=== PATIENT | male | born 1975 | race Caucasian/White ===

== ENCOUNTER 2018-03-17 10:59 | Emergency (ER) | payer SELFPAY ==
[2018-03-17] MEDS ORDERED: LORazepam 1 MG Tab ONE ×2 (11:00→17:38)
[2018-03-17] MEDS ORDERED: Ondansetron 4 MG Tab.DIS ONE (11:00)
[2018-03-17] MEDS ORDERED: MVI, Adult with Vitamin K 10 ML, Thiamine 100 MG, Folic Acid 1 MG, Magnesium Sulfate 3 ... IV SCH ×5 (11:45)
[2018-03-17] MEDS ORDERED: Sodium Chloride 0.9% 1,000 ML IV SCH ×2 (11:45→15:15)
[2018-03-17] MEDS ORDERED: Thiamine 200 MG/2 ML MDV ONE (11:53)
[2018-03-17] MEDS ORDERED: Magnesium Sulfate (4.06 MEQ/ML) 1 GM/2 ML SDV ONE (11:54)
[2018-03-17] MEDS ORDERED: MVI, Adult with Vitamin K 10 ML, Thiamine 100 MG, Folic Acid 1 MG, Magnesium Sulfate 3 ... IV ONE ×5 (12:18)
[2018-03-17] MEDS ORDERED: LORazepam 2 MG/ML SDV IVPUSH ONE (12:46)
[2018-03-17] MEDS ORDERED: LORazepam 2 MG/ML SDV ONE (13:04)
[2018-03-17] MEDS ORDERED: Sodium Chloride 0.9% 1,000 ML IV ONE (13:42)
[2018-03-17] MEDS ORDERED: Nicotine 21 MG/24 Hr Patch TRDERM ONE (15:05)
[2018-03-17] MEDS ORDERED: Nicotine 21 MG/24 Hr Patch ONE (15:07)
--- NOTE | 2018-03-17 21:57 | ER ---
DATE OF SERVICE: 03/17/2018 HISTORY OF PRESENT ILLNESS: A 42-year-old male who comes in with several family members. The patient is requesting help due to alcohol abuse. The patient tells me he has drank a lot of alcohol for many years. He does not drink every day, but he drinks a lot when he does decide to drink alcohol. In the last few days, he has been drinking a combination of beer and whiskey. The patient states that he knows he needs some help. He also tells me he has had some problems with depression in the past. He was on pills for this and it did seem to help, but he quit taking them quite a while ago now. The patient denies any recent falls or injuries. OBJECTIVE: GENERAL APPEARANCE: The patient is awake, he is slightly groggy in nature. He is quite talkative and uses a lot of profanity. VITAL SIGNS: Reviewed. Blood pressure 133/92, pulse is 131. He is afebrile. O2 sats are 99%, respirations 18. HEENT : Oral mucous membranes are moist. Posterior pharynx shows mild inflammation. Ears, TMs are normal. NECK: Supple. LUNGS: Clear. CARDIAC: Heart sounds distinct without murmurs. SKIN: Warm and dry. LAB AND X-RAY STUDIES: CBC shows an elevated white count of 18.5, neutrophils are also elevated. Comprehensive metabolic panel shows a potassium level of just slightly below normal at 3.4, glucose is 80. Liver panel shows an AST of 57. UA shows 40 ketones, moderate amount of occult blood, and greater than 300 proteinuria. Urine tox screen is negative. ETOH is 549. DIAGNOSIS: Alcohol intoxication with chronic history of the same/alcohol abuse. TREATMENT PLAN: The patient was given a banana bag that had thiamine, magnesium , multivitamins mixed in with a liter of normal saline. He was given this IV. He did not fall asleep as of 2 p.m. today. The patient is waffling on whether he should go to treatment. He states he has been to treatment at least three times. It does not seem to work. At other times he admits that he knows he needs to have some help. The patient is getting a lot of encouragement from his family members to go to treatment, but he is telling me that he cannot go today. At this point, I consulted with Dr. Orr who also came and evaluated the patient and with my shift ending soon, Dr. Orr will be taking over. Arrangements were started for the patient to go to a detox center of [place], was contacted. They do not have a bed yet, but they may have later on this afternoon. The patient at this point given to Dr. Orr for further attention. For further details, refer to Dr. Orr's dictation. CRS/MODL /[id number] MTDD
--- NOTE | 2018-03-19 09:50 | EDM.PDOC ---
ED HPI GENERAL MEDICAL PROBLEM - General Chief Complaint: Drug or Alcohol Abuse Stated Complaint: ETOH Abuse Time Seen by Provider: 03/17/18 17:00 - Related Data Allergies Allergy/AdvReac Type Severity Reaction Status Date / Time No Known Allergies Allergy Verified 03/17/18 11:10 Home Meds: Home Meds NK [No Known Home Meds] 03/17/18 [History] Past Medical History Psychiatric History: Reports: Addiction, Depression Dermatologic History: Reports: Eczema, Psoriasis - Past Surgical History Musculoskeletal Surgical History: Reports: Other (See Below) Other Musculoskeletal Surgeries/Procedures:: wrist surgery Social & Family History - Tobacco Use Smoking Status *Q: Current Every Day Smoker Years of Tobacco use: 30 Packs/Tins Daily: 2 - Alcohol Use Number of Drinks Per Day: 8 Date of Last Drink: 03/17/18 Time of Last Drink: 08:30 - Recreational Drug Use Recreational Drug Use: Yes Drug Use in Last 12 Months: Yes Recreational Drug Type: Reports: Marijuana/Hashish Recreational Drug Use Frequency: Rarely ED ROS GENERAL - Review of Systems Review Of Systems: See Below (kindly see Terrance's notes) ED EXAM, GENERAL - Physical Exam Exam: See Below (kindly see Rolando Carlos's notes) Course - Vital Signs Text/Narrative:: Pt was initially agitated with alcohol level of 549 at letal level. Rolando STALLWORTH was handling the patient in the emergency room and I was asked by him to evaluate patient due his alcohol levels.Pt was alert and oriented, but upset and agitated because of his family getting him into emergency room. Pt was started on IV fluids of alcohol induced dehydration. Apparently was co- operative through the ER visit. His answer to his drinking habit is that he is depressed and alcohol make him forget things. When he wakes up and thinks of his financial or social issues he drinks more to forget. Last Recorded V/S: Last Vital Signs Temp 98.0 F 03/17/18 11:13 Pulse 100 03/17/18 16:00 Resp 18 03/17/18 11:13 BP 133/92 H 03/17/18 11:13 Pulse Ox 99 03/17/18 11:13 - Orders/Labs/Meds Labs: Laboratory Tests 03/17/18 03/17/18 03/17/18 Range/Units 11:55 11:55 11:55 WBC 18.5 H (4.0-11.0) K/uL RBC 4.83 (4.50-6.50) M/uL Hgb 16.5 (13.0-18.0) g/dL Hct 46.5 (40.0-54.0) % MCV 96 (76-96) fL MCH 34.2 H (27.0-32.0) pg MCHC 35.5 H (31.0-35.0) g/dL RDW 12.9 (11.0-16.0) % Plt Count 273 (150-400) K/uL MPV 9.8 (6.0-10.0) fL Neut % (Auto) 86.4 H (45.0-70.0) % Lymph % (Auto) 10.7 L (20.0-40.0) % Phillips % (Auto) 2.5 L (3.0-10.0) % Eos % (Auto) 0.0 L (1.0-5.0) % Baso % (Auto) 0.4 (0.0-0.5) % Neut # (Auto) 15.96 H (2.00-7.50) K/uL Lymph # (Auto) 1.98 (1.50-4.00) K/uL Phillips # (Auto) 0.46 (0.20-0.80) K/uL Eos # (Auto) 0.00 L (0.04-0.40) K/uL Baso # (Auto) 0.08 (0.02-0.10) K/uL Sodium 143 (136-145) mmol/L Potassium 3.4 L (3.5-5.1) mmol/L Chloride 100 (98-107) mmol/L Carbon Dioxide 19.1 L (21.0-32.0) mmol/L Anion Gap 27.3 H (5.0-15.0) mmol/L BUN 13 (8-26) mg/dL Creatinine 1.14 (0.70-1.30) mg/dL Est Cr Clr Drug Dosing TNP Estimated GFR (MDRD) > 60 (>60) MLS/MIN BUN/Creatinine Ratio 11.4 (6-25) Glucose 80 (74-100) mg/dL Calcium 8.5 (8.5-10.1) mg/dL Total Bilirubin 0.4 D (0.0-1.0) mg/dL AST 57 H (15-37) U/L ALT 45 (12-78) U/L Alkaline Phosphatase 63 (46-116) U/L Total Protein 8.9 H (6.4-8.2) g/dL Albumin 4.9 (3.4-5.0) g/dL Globulin 4.0 (2.2-4.2) g/dL Albumin/Globulin Ratio 1.2 (0.8-2.0) Urine Color Urine Appearance (CLEAR) Urine pH (5.0-8.0) Ur Specific [place] (1.003-1.030) Urine Protein (NEGATIVE) mg/dL Urine Glucose (UA) (NEGATIVE) mg/dL Urine Ketones (NEGATIVE) mg/dL Urine Occult Blood (NEGATIVE) Urine Nitrite (NEGATIVE) Urine Bilirubin (NEGATIVE) Urine Urobilinogen (0.2-1.0) E.U./dL Ur Leukocyte Esterase (NEGATIVE) Urine RBC /HPF Urine WBC /HPF Ur Squamous Epith Cells /HPF Urine Bacteria /HPF Urine Opiates Screen (NEGATIVE) Ur Oxycodone Screen (NEGATIVE) Urine Methadone Screen (NEGATIVE) U Acetaminophen Screen (NEGATIVE) Ur Barbiturates Screen (NEGATIVE) Ur Tricyclics Screen (NEGATIVE) Ur Phencyclidine Scrn (NEGATIVE) Ur Amphetamine Screen (NEGATIVE) U Methamphetamines Scrn (NEGATIVE) U Benzodiazepines Scrn (NEGATIVE) U Cocaine Metab Screen (NEGATIVE) U Marijuana (THC) Screen (NEGATIVE) Ethyl Alcohol 549.0 H* (0.0-0.0) mg/dL 03/17/18 03/17/18 03/17/18 Range/Units 12:48 12:48 17:00 WBC (4.0-11.0) K/uL RBC (4.50-6.50) M/uL Hgb (13.0-18.0) g/dL Hct (40.0-54.0) % MCV (76-96) fL MCH (27.0-32.0) pg MCHC (31.0-35.0) g/dL RDW (11.0-16.0) % Plt Count (150-400) K/uL MPV (6.0-10.0) fL Neut % (Auto) (45.0-70.0) % Lymph % (Auto) (20.0-40.0) % Phillips % (Auto) (3.0-10.0) % Eos % (Auto) (1.0-5.0) % Baso % (Auto) (0.0-0.5) % Neut # (Auto) (2.00-7.50) K/uL Lymph # (Auto) (1.50-4.00) K/uL Phillips # (Auto) (0.20-0.80) K/uL Eos # (Auto) (0.04-0.40) K/uL Baso # (Auto) (0.02-0.10) K/uL Sodium (136-145) mmol/L Potassium (3.5-5.1) mmol/L Chloride (98-107) mmol/L Carbon Dioxide (21.0-32.0) mmol/L Anion Gap (5.0-15.0) mmol/L BUN (8-26) mg/dL Creatinine (0.70-1.30) mg/dL Est Cr Clr Drug Dosing Estimated GFR (MDRD) (>60) MLS/MIN BUN/Creatinine Ratio (6-25) Glucose (74-100) mg/dL Calcium (8.5-10.1) mg/dL Total Bilirubin (0.0-1.0) mg/dL AST (15-37) U/L ALT (12-78) U/L Alkaline Phosphatase (46-116) U/L Total Protein (6.4-8.2) g/dL Albumin (3.4-5.0) g/dL Globulin (2.2-4.2) g/dL Albumin/Globulin Ratio (0.8-2.0) Urine Color Yellow Urine Appearance Clear (CLEAR) Urine pH 5.0 (5.0-8.0) Ur Specific [place] >= 1.030 (1.003-1.030) Urine Protein >=300 H (NEGATIVE) mg/dL Urine Glucose (UA) Negative (NEGATIVE) mg/dL Urine Ketones 40 H (NEGATIVE) mg/dL Urine Occult Blood Moderate H (NEGATIVE) Urine Nitrite Negative (NEGATIVE) Urine Bilirubin Negative (NEGATIVE) Urine Urobilinogen 0.2 (0.2-1.0) E.U./dL Ur Leukocyte Esterase Negative (NEGATIVE) Urine RBC 0-5 H /HPF Urine WBC 0-5 H /HPF Ur Squamous Epith Cells Many /HPF Urine Bacteria Few /HPF Urine Opiates Screen Negative (NEGATIVE) Ur Oxycodone Screen Negative (NEGATIVE) Urine Methadone Screen Negative (NEGATIVE) U Acetaminophen Screen Negative (NEGATIVE) Ur Barbiturates Screen Negative (NEGATIVE) Ur Tricyclics Screen Negative (NEGATIVE) Ur Phencyclidine Scrn Negative (NEGATIVE) Ur Amphetamine Screen Negative (NEGATIVE) U Methamphetamines Scrn Negative (NEGATIVE) U Benzodiazepines Scrn Negative (NEGATIVE) U Cocaine Metab Screen Negative (NEGATIVE) U Marijuana (THC) Screen Negative (NEGATIVE) Ethyl Alcohol 344.0 H* (0.0-0.0) mg/dL Meds: Medications Discontinued Medications Generic Name Dose Route Start Last Admin Trade Name Freq PRN Reason Stop Dose Admin Multivitamins/Minerals 10 ml/ 1,017.2 mls @ 250 mls/hr 03/17/18 11:45 12:18 Thiamine HCl 100 mg/ Folic IV 999 mls/hr Acid 1 mg/ Magnesium Sulfate 3 ASDIRECTED GISSELLE Administration gm/ Sodium Chloride Sodium Chloride 1,000 mls @ 250 mls/hr 03/17/18 11:45 Normal Saline IV ASDIRECTED GISSELLE Sodium Chloride 1,000 mls @ 999 mls/hr 03/17/18 13:42 03/17/18 13:49 Normal Saline IV 03/17/18 14:42 999 mls/hr .BOLUS ONE Administration Sodium Chloride 1,000 mls @ 150 mls/hr 03/17/18 15:15 03/17/18 15:10 Normal Saline IV 150 mls/hr ASDIRECTED GISSELLE Administration Lorazepam 2 mg 03/17/18 12:46 03/17/18 13:27 Ativan IVPUSH 03/17/18 12:47 2 mg ONETIME ONE Administration Lorazepam Confirm 03/17/18 13:04 03/17/18 13:14 Ativan Administered 03/17/18 13:05 Not Given Dose 2 mg .ROUTE .STK-MED ONE Lorazepam Confirm 03/17/18 17:38 03/17/18 19:33 Ativan Administered 03/17/18 17:39 Not Given Dose 9 mg .ROUTE .STK-MED ONE Magnesium Sulfate Confirm 03/17/18 11:54 03/17/18 12:26 Magnesium Sulfate 50% Administered 03/17/18 11:55 Not Given Dose 3 gm .ROUTE .STK-MED ONE Nicotine 21 mg 03/17/18 15:05 03/17/18 15:10 Habitrol TRDERM 03/17/18 15:06 21 mg ONETIME ONE Administration Nicotine Confirm 03/17/18 15:07 03/17/18 16:24 Habitrol Administered 03/17/18 15:08 Not Given Dose 21 mg .ROUTE .STK-MED ONE Thiamine HCl Confirm 03/17/18 11:53 03/17/18 12:26 Vitamin B-1 Administered 03/17/18 11:54 Not Given Dose 200 mg .ROUTE .STK-MED ONE Departure - Departure Time of Disposition: 17:40 Disposition: Home, Self-Care 01 Condition: Fair Clinical Impression: Alcohol abuse - Discharge Information Instructions: Alcohol Intoxication, [id number], Finding Treatment for Addiction Referrals: PCP,None [Primary Care Provider] - Forms: ED Department Discharge Additional Instructions: Make an appointment to see Dr. Orr in 1 week so he can start medication to help with your depression. Drink plenty of water over the weekend. Take Zofran (ondansetron) 1 tab by mouth every 8 hours as needed for NAUSEA. Take Ativan 1mg by mouth every 3 times a day for SHAKINESS/WITHDRAWALS. - Problem List & Annotations (1) Alcohol abuse SNOMED Code(s): 95654378 Code(s): F10.10 - ALCOHOL ABUSE, UNCOMPLICATED Status: Acute - Problem List Review Problem List Initiated/Reviewed/Updated: Yes - Assessment/Plan Assessment:: Alcohol abuse Plan: Pt's repeat alcohol level after hydration with 2 and 1/2 litres of normal at 5 PM was 344mg. Pt is very alert and oriented times 3. He is refusing to go in to alcohol detox treatment, as he feels that is of not help. He claims when he has quit in the past he has quit without treatment and has done well. His parents are here in the emergency room. Pt is reusing to go in for inpatient treatment. His alcohol level is 344, but he is not delirious or confused. He is promising to go home and rest. He claims he has never had withdrawals. Mother is registered nurse, she claims she can keep an eye on him. So patient has been discharge home. Advised not to drink alcohol. Also I have sent him home on ativan 1mg PO TID (10 tabs) and zofran 4mg po tid( 4 tabs) prn for nausea. IF he does get into withdrawals advised to return to emergency room. Other goodwin I have advised him to followup in clinic next week for recheck.
--- NOTE | 2018-03-20 08:34 | CR ---
DATE OF SERVICE: 03/17/18 CLINICAL DATA: Intoxication - elevated WBC. PORTABLE CHEST: No priors. The heart size is normal. The lungs are clear. No evidence of acute intrathoracic disease. [id number] [facility]
== END 2018-03-17 17:42 | disposition home or self-care (01) ==
LOC: LB.ED 10:59 → EEVIPCON 10:59 → LB.ED 17:42
DX: F10.129 Alcohol abuse with intoxication, unspecified (principal); Y90.8 Blood alcohol level of 240 mg/100 ml or more; L40.9 Psoriasis, unspecified; F17.210 Nicotine dependence, cigarettes, uncomplicated
CPT/HCPCS: 36415; 71045; 80053; 80307; 81001; 85025; 96361; 96365; 96375; 99284-25; A9270-GY; G0480; J2060; J3411; J3475; J3490; J7040

== ENCOUNTER 2020-03-04 23:47 | Emergency (ER) | payer BC, OTHER ==
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
[2020-03-05] MEDS ORDERED: LORazepam 2 MG/ML SDV IVPUSH STA ×2 (02:39→02:44)
[2020-03-05] MEDS ORDERED: diazePAM 5 MG/ML MDV IV STA (02:46)
[2020-03-05] MEDS ORDERED: Haloperidol Lactate 5 MG/ML SDV IVPUSH STA ×2 (02:49→02:53)
[2020-03-05] MEDS ORDERED: diazePAM 5 MG/ML MDV IV ONE ×12 (02:50→03:40)
[2020-03-05] MEDS ORDERED: Haloperidol Lactate 5 MG/ML SDV IVPUSH ONE ×2 (03:00→03:01)
--- NOTE | 2020-03-05 08:18 | CT ---
DATE OF SERVICE: 03/05/20 CLINICAL DATA: loss of consciousness UNENHANCED BRAIN CT: Multislice acquisition through the brain without IV contrast was performed. Comparison is made to a prior exam dated 01/06/09. There is mild diffuse cerebral atrophy. There are periventricular lucencies bilaterally consistent with small vessel ischemic change. No masses or mass effect. No intracranial hemorrhage. No evidence of acute or subacute infarct. There is mild mucosal thickening in the ethmoid sinuses consistent with chronic sinusitis. No osseous abnormalities. IMPRESSION: No acute intracranial abnormalities. [id number] [facility]
--- NOTE | 2020-03-05 08:21 | CR ---
DATE OF SERVICE: 03/05/20 CLINICAL DATA: intubation AP PORTABLE CHEST: No priors. There is an endotracheal tube in place with its distal tip 2 cm above the ramy. The heart size is normal. The lungs are clear. No pneumothorax. No pleural effusions. [id number] [facility]
--- NOTE | 2020-03-05 08:30 | CT ---
DATE OF SERVICE: 03/05/20 CLINICAL DATA: pain UNENHANCED ABDOMEN AND PELVIC CT: Multislice axial acquisition without IV and without oral contrast was performed. No priors. There are mild atelectatic changes in the dependent portion of both lungs with small areas of consolidation in the posterior costophrenic angles bilaterally. The lung bases are otherwise clear. The heart size is normal. The gallbladder is normal size with homogeneous attenuation. No focal hepatic lesions. The gallbladder appears normal. No calcified gallstones. No pericholecystic fluid. The spleen appears normal. The pancreas appears normal. The right and left adrenals appear normal. The right and left kidneys appear normal. No nephrocalcinosis or nephrolithiasis. No hydronephrosis or hydroureter. The bladder is fluid-filled. It appears normal. The appendix is not dilated. No evidence of appendicitis. There is diverticulosis of the descending and sigmoid colon. No evidence of diverticulitis. No free air. No free fluid. No dilated loops of bowel. No adenopathy. No aortic aneurysm. The bladder is fluid-filled. It appears normal. IMPRESSION: No acute abnormalities. [id number] [facility]
== END 2020-03-05 04:31 ==
LOC: LB.ED 23:47
DX: K72.00 Acute and subacute hepatic failure without coma (principal); E87.6 Hypokalemia; E87.1 Hypo-osmolality and hyponatremia; E72.20 Disorder of urea cycle metabolism, unspecified; F23 Brief psychotic disorder
CPT/HCPCS: 31500; 36415; 70450; 71045; 74176; 80048; 80076; 80307; 81001; 82140; 82800; 83690; 84484; 85025; 93005; 96374; 96375; 96376; 99285; A0425; A0429; J1630; J2060; J3360

== ENCOUNTER 2021-05-17 20:43 | Emergency (ER) | payer BC, MEDICAID ==
[2021-05-17] MEDS: Diphtheria,Pertussis(Acell),Tetanus Vaccine 0.5 ML SDV IM ONE (21:25)
--- NOTE | 2021-05-17 21:47 | EDM.PDOC ---
ED HPI GENERAL MEDICAL PROBLEM - General Chief Complaint: Laceration Stated Complaint: LACERATION Time Seen by Provider: 05/17/21 20:44 - History of Present Illness INITIAL COMMENTS - FREE TEXT/NARRATIVE: pt arrives with left thumb lac he sustained while working with a knife at home. states bleeding is controlled. denies numbness near lac. no loss of ROM. - Related Data Allergies Allergy/AdvReac Type Severity Reaction Status Date / Time No Known Allergies Allergy Verified 05/17/21 21:02 Home Meds: Home Meds NK [No Known Home Meds] 03/17/18 [History] Past Medical History - Past Health History Medical/Surgical History: Denies Medical/Surgical History Psychiatric History: Reports: Addiction, Depression Dermatologic History: Reports: Eczema, Psoriasis - Past Surgical History Musculoskeletal Surgical History: Reports: Other (See Below) Other Musculoskeletal Surgeries/Procedures:: wrist surgery Social & Family History - Family History Family Medical History: No Pertinent Family History ED ROS GENERAL - Review of Systems Review Of Systems: Comprehensive ROS is negative, except as noted in HPI. ED EXAM, SKIN/RASH Exam: See Below Exam Limited By: No Limitations General Appearance: Alert, WD/WN, No Apparent Distress Respiratory/Chest: No Respiratory Distress Cardiovascular: Normal Peripheral Pulses Extremities: Other (2cm lac to distal tip of left thumb. no fingernail bed injury.) ED SKIN PROCEDURES - Laceration/Wound Repair Left Distal Digit - 1st (Thumb) Appearance: Clean Distal NVT: Neuro & Vascular Intact Anesthetic Type: Local Local Anesthesia - Lidocaine (Xylocaine): 1% Plain Exploration/Debridement/Repair: Wound Explored, In a Bloodless Field, Explored to Base, Minimal Debridement, No Foreign Material Found Closed with: Sutures Lac/Wound length In cm: 2 Suture Size: 4-0 # of Sutures: 6 Suture Type: Nylon Tetanus Status Addressed: Yes Complications: No Course - Vital Signs Last Recorded V/S: Last Vital Signs Temp 96.8 F L 05/17/21 20:44 Pulse 64 05/17/21 20:44 Resp 16 05/17/21 20:44 BP 123/85 05/17/21 20:44 Pulse Ox 98 05/17/21 20:44 Departure - Departure Time of Disposition: 21:50 Disposition: Home, Self-Care 01 Condition: Good Clinical Impression: Thumb laceration - Discharge Information *PRESCRIPTION DRUG MONITORING PROGRAM REVIEWED*: No *COPY OF PRESCRIPTION DRUG MONITORING REPORT IN PATIENT LEXUS: No Instructions: Wound Care, Adult Referrals: PCP,None [Primary Care Provider] - Forms: ED Department Discharge Additional Instructions: Discharge home. Keep the wound clean and dry. Return to the hospital in 10 days to have sutures removed. Monitor for signs of infection-increased pain, pus and redness. Follow up with your primary provider as needed. Call or return to the ER if you have any questions or concerns. Sepsis Event Note (ED) - Evaluation Sepsis Screening Result: No Definite Risk - Focused Exam Vital Signs: Vital Signs Temp Pulse Resp BP Pulse Ox 05/17/21 20:44 96.8 F L 64 16 123/85 98 - Problem List & Annotations (1) Thumb laceration SNOMED Code(s): 789524073 Code(s): S61.019A - LACERATION W/O FOREIGN BODY OF THMB W/O DAMAGE TO NAIL, INIT Status: Acute Current Visit: Yes - Problem List Review Problem List Initiated/Reviewed/Updated: Yes - Assessment/Plan Assessment:: thumb lac: repaired with sutures. updated TDAP.
== END 2021-05-17 21:30 | disposition home or self-care (01) ==
LOC: LB.ED 20:43
DX: S61.012A Laceration without foreign body of left thumb without damage to nail, initial encounter (principal); Z23 Encounter for immunization; W26.0XXA Contact with knife, initial encounter; Y92.009 Unspecified place in unspecified non-institutional (private) residence as the place of occurrence of the external cause
CPT/HCPCS: 12001; 90471; 90715; 99282-25

== ENCOUNTER 2021-05-29 03:53 | Emergency (ER) | payer MEDICAID ==
[~2021-05-29 03:53] MED LIST: LORazepam 2 MG/ML SDV IVPUSH ONE
[2021-05-29] MEDS ORDERED: levETIRAcetam 1,000 MG in Sodium Chloride 0.9% 100 ML IV ONE (04:03)
[2021-05-29] MEDS ORDERED: Sodium Chloride 0.9% 1,000 ML IV ONE (04:03)
[2021-05-29] MEDS ORDERED: Sodium Chloride 0.9% 10 ML Syringe FLUSH PRN (04:04)
--- NOTE | 2021-05-29 04:08 | EDM.PDOC ---
ED HPI GENERAL MEDICAL PROBLEM - General Chief Complaint: Neurological Problem Stated Complaint: SEIZURE Time Seen by Provider: 05/29/21 03:55 Source of Information: Reports: EMS History Limitations: Reports: No Limitations - History of Present Illness INITIAL COMMENTS - FREE TEXT/NARRATIVE: patient was brought to the ER by EMS due to a seizure episode. witnessed by . not on seizure meds, thou he has one seizure in the past 1-2 years ago. denies ETOH intake for 2 days at least. But admits consuming around 12 beers daily. smokes cigarettes. His called 911 - upon arrival of EMS - he was alert and oriented- sitting on the cough. Blood sugar 170. Denies headache, no weakness or numbness. alert and oriented. talking in full sentences. Home medications - Zoloft and folic acid. - Related Data Allergies Allergy/AdvReac Type Severity Reaction Status Date / Time No Known Allergies Allergy Verified 05/17/21 21:02 Home Meds: Home Meds LORazepam [Ativan] 1 mg PO Q8H PRN #12 tab 05/29/21 [Rx] RX: Potassium Chloride 20 meq PO BID #10 tab.er.prt 05/29/21 [Rx] Past Medical History - Past Health History Medical/Surgical History: Denies Medical/Surgical History Psychiatric History: Reports: Addiction, Depression Dermatologic History: Reports: Eczema, Psoriasis - Past Surgical History Musculoskeletal Surgical History: Reports: Other (See Below) Other Musculoskeletal Surgeries/Procedures:: wrist surgery Social & Family History - Family History Family Medical History: No Pertinent Family History - Caffeine Use Caffeine Use: Reports: Coffee ED ROS GENERAL - Review of Systems Review Of Systems: See Below HEENT: Reports: No Symptoms Respiratory: Reports: No Symptoms Cardiovascular: Reports: No Symptoms GI/Abdominal: Reports: No Symptoms Musculoskeletal: Reports: No Symptoms Skin: Reports: No Symptoms Neurological: Reports: No Symptoms - Physical Exam Exam: See Below Exam Limited By: No Limitations General Appearance: Alert, WD/WN, No Apparent Distress Eye Exam: Bilateral Eye: EOMI, PERRL Head Exam: Atraumatic Respiratory/Chest: No Respiratory Distress, Lungs Clear Cardiovascular: Normal Peripheral Pulses Neuro Exam (Abbreviated): Alert, Oriented, Normal Cognition, No Motor/Sensory Deficits Extremities: Normal Inspection, Normal Range of Motion Psychiatric: Normal Affect, Normal Mood Course - Vital Signs Last Recorded V/S: Last Vital Signs Temp 36.4 C 05/29/21 03:55 Pulse 73 05/29/21 08:00 Resp 16 05/29/21 06:31 BP 123/93 H 05/29/21 08:00 Pulse Ox 98 05/29/21 07:58 - Orders/Labs/Meds Orders: Active Orders 24 hr Category Date Time Status MVI, Adult with Vitamin K [Infuvite Adult] 10 ml Med 05/29/21 05:00 Active Thiamine [Vitamin B-1] 100 mg Folic Acid 1 mg Magnesium Sulfate [Magnesium Sulfate 50%] 3 gm Sodium Chloride 0.9% [Normal Saline] 1,000 ml IV ASDIRECTED Sodium Chloride 0.9% [Saline Flush] Med 05/29/21 04:04 Active 10 ml FLUSH ASDIRECTED PRN Saline Lock Insert [OM.PC] Routine Oth 05/29/21 04:04 Ordered Medication Orders Multivitamins/Minerals 10 ml/Thiamine HCl 100 mg/ Folic Acid 1 mg/ Magnesium Sulfate 3 gm/ Sodium Chloride 1,017.2 mls @ 500 mls/hr IV ASDIRECTED GISSELLE Last Admin: 05/29/21 06:16 Dose: 500 mls/hr Documented by: CHANG Sodium Chloride (Sodium Chloride 0.9% 10 Ml Syringe) 10 ml FLUSH ASDIRECTED PRN PRN Reason: Keep Vein Open Labs: Laboratory Tests 05/29/21 05/29/21 05/29/21 Range/Units 04:15 04:15 04:15 WBC 9.2 D (4.0-11.0) K/uL RBC 4.17 L (4.50-6.50) M/uL Hgb 14.4 (13.0-18.0) g/dL Hct 41.2 (40.0-54.0) % MCV 99 H (76-96) fL MCH 34.5 H (27.0-32.0) pg MCHC 35.0 (31.0-35.0) g/dL RDW 11.7 (11.0-16.0) % Plt Count 147 L D (150-400) K/uL MPV 10.1 H (6.0-10.0) fL Sodium (136-145) mmol/L Potassium (3.5-5.1) mmol/L Chloride (98-107) mmol/L Carbon Dioxide (21.0-32.0) mmol/L Anion Gap (5.0-15.0) mmol/L BUN (8-26) mg/dL Creatinine (0.70-1.30) mg/dL Est Cr Clr Drug Dosing Estimated GFR (MDRD) (>60) MLS/MIN BUN/Creatinine Ratio (6-25) Glucose (74-100) mg/dL Calcium (8.5-10.1) mg/dL Phosphorus 3.5 (2.5-4.9) mg/dL Magnesium 2.1 (1.8-2.4) mg/dL Total Bilirubin (0.0-1.0) mg/dL AST (15-37) U/L ALT (12-78) U/L Alkaline Phosphatase (46-116) U/L Ammonia 14 (11-32) umol/L Total Protein (6.4-8.2) g/dL Albumin (3.4-5.0) g/dL Globulin (2.2-4.2) g/dL Albumin/Globulin Ratio (0.8-2.0) Urine Opiates Screen (NEGATIVE) Ur Oxycodone Screen (NEGATIVE) Urine Methadone Screen (NEGATIVE) Ur Barbiturates Screen (NEGATIVE) Ur Tricyclics Screen (NEGATIVE) Ur Phencyclidine Scrn (NEGATIVE) Ur Amphetamine Screen (NEGATIVE) U Methamphetamines Scrn (NEGATIVE) Urine MDMA Screen (NEGATIVE) U Benzodiazepines Scrn (NEGATIVE) U Cocaine Metab Screen (NEGATIVE) U Marijuana (THC) Screen (NEGATIVE) Ethyl Alcohol < 3.0 (<3.0) mg/dL 05/29/21 05/29/21 05/29/21 Range/Units 04:15 04:33 08:48 WBC (4.0-11.0) K/uL RBC (4.50-6.50) M/uL Hgb (13.0-18.0) g/dL Hct (40.0-54.0) % MCV (76-96) fL MCH (27.0-32.0) pg MCHC (31.0-35.0) g/dL RDW (11.0-16.0) % Plt Count (150-400) K/uL MPV (6.0-10.0) fL Sodium 137 140 (136-145) mmol/L Potassium 2.8 L* 2.8 L* (3.5-5.1) mmol/L Chloride 100 104 (98-107) mmol/L Carbon Dioxide 24.2 D 25.4 (21.0-32.0) mmol/L Anion Gap 15.6 H 13.4 (5.0-15.0) mmol/L BUN 13 D 9 D (8-26) mg/dL Creatinine 0.90 D 0.64 L D (0.70-1.30) mg/dL Est Cr Clr Drug Dosing TNP TNP Estimated GFR (MDRD) > 60 > 60 (>60) MLS/MIN BUN/Creatinine Ratio 14.4 14.1 (6-25) Glucose 163 H 96 D (74-100) mg/dL Calcium 8.9 7.8 L (8.5-10.1) mg/dL Phosphorus (2.5-4.9) mg/dL Magnesium (1.8-2.4) mg/dL Total Bilirubin 0.5 D (0.0-1.0) mg/dL AST 129 H (15-37) U/L ALT 180 H (12-78) U/L Alkaline Phosphatase 61 (46-116) U/L Ammonia (11-32) umol/L Total Protein 8.1 (6.4-8.2) g/dL Albumin 4.1 (3.4-5.0) g/dL Globulin 4.0 (2.2-4.2) g/dL Albumin/Globulin Ratio 1.0 (0.8-2.0) Urine Opiates Screen Negative (NEGATIVE) Ur Oxycodone Screen Negative (NEGATIVE) Urine Methadone Screen Negative (NEGATIVE) Ur Barbiturates Screen Negative (NEGATIVE) Ur Tricyclics Screen Negative (NEGATIVE) Ur Phencyclidine Scrn Negative (NEGATIVE) Ur Amphetamine Screen Negative (NEGATIVE) U Methamphetamines Scrn Negative (NEGATIVE) Urine MDMA Screen Negative (NEGATIVE) U Benzodiazepines Scrn Negative (NEGATIVE) U Cocaine Metab Screen Negative (NEGATIVE) U Marijuana (THC) Screen Negative (NEGATIVE) Ethyl Alcohol (<3.0) mg/dL Meds: Medications Generic Name Dose Route Start Last Admin Trade Name Freq PRN Reason Stop Dose Admin Multivitamins/Minerals 10 ml/ 1,017.2 mls @ 500 mls/hr 05/29/21 05:00 05/29/21 06:16 Thiamine HCl 100 mg/ Folic IV 500 mls/hr Acid 1 mg/ Magnesium Sulfate 3 ASDIRECTED GISSELLE Administration gm/ Sodium Chloride Sodium Chloride 10 ml 05/29/21 04:04 Sodium Chloride 0.9% 10 Ml Syringe FLUSH ASDIRECTED PRN Keep Vein Open Discontinued Medications Generic Name Dose Route Start Last Admin Trade Name Holli PRN Reason Stop Dose Admin Levetiracetam 1,000 mg/ Sodium 110 mls @ 400 mls/hr 05/29/21 04:03 05/29/21 04:20 Chloride IV 05/29/21 04:17 400 mls/hr ONETIME ONE Administration Sodium Chloride 1,000 mls @ 999 mls/hr 05/29/21 04:03 05/29/21 04:03 Normal Saline IV 05/29/21 05:03 999 mls/hr .BOLUS ONE Administration Potassium Chloride 10 meq/ 50 mls @ 50 mls/hr 05/29/21 04:55 05/29/21 05:07 Premix IV 05/29/21 05:54 50 mls/hr ONETIME ONE Administration Potassium Chloride Confirm 05/29/21 04:59 05/29/21 05:59 Kcl In Water 10 Meq/50 Ml Administered 05/29/21 05:00 Not Given Dose 50 mls @ as directed .ROUTE .STK-MED ONE Potassium Chloride 10 meq/ 50 mls @ 50 mls/hr 05/29/21 09:17 05/29/21 09:33 Premix IV 05/29/21 10:16 50 mls/hr ONETIME ONE Administration Potassium Chloride Confirm 05/29/21 09:37 05/29/21 09:33 Kcl In Water 10 Meq/50 Ml Administered 05/29/21 09:38 Not Given Dose 50 mls @ as directed .ROUTE .STK-MED ONE Potassium Chloride 10 meq/ 50 mls @ 50 mls/hr 05/29/21 10:31 05/29/21 11:00 Premix IV 05/29/21 11:30 50 mls/hr ONETIME ONE Administration Potassium Chloride Confirm 05/29/21 10:42 05/29/21 11:50 Kcl In Water 10 Meq/50 Ml Administered 05/29/21 10:43 Not Given Dose 50 mls @ as directed .ROUTE .STK-MED ONE Lorazepam 2 mg 05/29/21 03:37 05/29/21 04:21 Lorazepam 2 Mg/Ml Sdv IVPUSH 05/29/21 03:38 Not Given ONETIME ONE Lorazepam 1 mg 05/29/21 04:22 05/29/21 04:00 Lorazepam 2 Mg/Ml Sdv IVPUSH 05/29/21 04:23 1 mg ONETIME ONE Administration Potassium Chloride 20 meq 05/29/21 08:36 05/29/21 08:53 Potassium Chloride 20 Meq Tab.Er PO 05/29/21 08:37 20 meq ONETIME ONE Administration Potassium Chloride 20 meq 05/29/21 10:31 05/29/21 11:53 Potassium Chloride 20 Meq Tab.Er PO 05/29/21 10:32 20 meq ONETIME ONE Administration Thiamine HCl Confirm 05/29/21 05:33 05/29/21 05:59 Thiamine 200 Mg/2 Ml Mdv Administered 05/29/21 05:34 Not Given Dose 200 mg .ROUTE .STK-MED ONE - Re-Assessments/Exams Free Text/Narrative Re-Assessment/Exam: upon arrival - IV line was started IV ativan 1mg was given Keppra 1gm IV as well. IV fluids was started labs significant for hypokalemia - 2.8 IV and PO KCl replacement. Banana bag IV. K was repeated and still down to 2.8 patient was offered admission the floor for continuation of therapy but he declined it. He wanted to be treated in the ER and then to be released home. More IV K was given was advised about risk of not getting full treatment in house - also about cutting on alcohol cold turkey. He expressed his understanding. No seizure activities while in the ER Departure - Departure Time of Disposition: 12:08 Disposition: Home, Self-Care 01 Condition: Fair Clinical Impression: Hypokalemia, Chronic alcohol dependence, continuous Seizure due to alcohol withdrawal Qualifiers: Complication of substance-induced condition: with unspecified complication Qualified Code(s): F10.239 - Alcohol dependence with withdrawal, unspecified; R56.9 - Unspecified convulsions - Discharge Information *PRESCRIPTION DRUG MONITORING PROGRAM REVIEWED*: Yes *COPY OF PRESCRIPTION DRUG MONITORING REPORT IN PATIENT LEXUS: Yes Prescriptions: LORazepam [Ativan] 1 mg PO Q8H PRN #12 tab PRN Reason: Agitation RX: Potassium Chloride 20 meq PO BID #10 tab.er.prt Referrals: PCP,None [Primary Care Provider] - Forms: ED Department Discharge Sepsis Event Note (ED) - Focused Exam Vital Signs: Vital Signs Temp Pulse Resp BP Pulse Ox 05/29/21 08:00 73 123/93 H 05/29/21 07:58 85 126/95 H 98 05/29/21 07:30 61 91/66 05/29/21 06:31 69 16 114/76 95 05/29/21 06:00 106/75 05/29/21 05:51 68 16 116/77 99 05/29/21 04:37 77 94 L 05/29/21 04:15 81 16 123/75 95 05/29/21 03:55 36.4 C 97 18 128/87 98 05/29/21 03:53 36.4 C 97 18 128/87 98 - Problem List & Annotations (1) Hypokalemia SNOMED Code(s): 79042377 Code(s): E87.6 - HYPOKALEMIA Status: Acute Priority: High Current Visit: Yes (2) Chronic alcohol dependence, continuous SNOMED Code(s): 596751377 Code(s): F10.20 - ALCOHOL DEPENDENCE, UNCOMPLICATED Status: Acute Priority: Medium Current Visit: Yes (3) Seizure due to alcohol withdrawal SNOMED Code(s): 833077645 Code(s): F10.239 - ALCOHOL DEPENDENCE WITH WITHDRAWAL, UNSPECIFIED; R56.9 - UNSPECIFIED CONVULSIONS Status: Acute Priority: Medium Current Visit: Yes Qualifiers: Complication of substance-induced condition: with unspecified complication Qualified Code(s): F10.239 - Alcohol dependence with withdrawal, unspecified; R56.9 - Unspecified convulsions - Problem List Review Problem List Initiated/Reviewed/Updated: Yes - My Orders Last 24 Hours: My Active Orders 05/29/21 04:04 Sodium Chloride 0.9% [Saline Flush] 10 ml FLUSH ASDIRECTED PRN Saline Lock Insert [OM.PC] Routine 05/29/21 05:00 MVI, Adult with Vitamin K [Infuvite Adult] 10 ml Thiamine [Vitamin B-1] 100 mg Folic Acid 1 mg Magnesium Sulfate [Magnesium Sulfate 50%] 3 gm Sodium Chloride 0.9% [Normal Saline] 1,000 ml IV ASDIRECTED - Assessment/Plan Last 24 Hours: My Active Orders 05/29/21 04:04 Sodium Chloride 0.9% [Saline Flush] 10 ml FLUSH ASDIRECTED PRN Saline Lock Insert [OM.PC] Routine 05/29/21 05:00 MVI, Adult with Vitamin K [Infuvite Adult] 10 ml Thiamine [Vitamin B-1] 100 mg Folic Acid 1 mg Magnesium Sulfate [Magnesium Sulfate 50%] 3 gm Sodium Chloride 0.9% [Normal Saline] 1,000 ml IV ASDIRECTED Plan: - take K supplements as prescribed - recommend moderate alcohol intake and to avoid cutting on alcohol suddenly like this time to avoid seizure activities - take ativan as needed for anxiety/agitation - increase fluids intake - follow up with your PCP in 3-10 days as needed
[2021-05-29] MEDS ORDERED: LORazepam 2 MG/ML SDV IVPUSH ONE (04:22)
[2021-05-29] MEDS ORDERED: Potassium Chloride Riders 10 MEQ in Premix Bag 1 BAG IV ONE ×3 (04:55→10:31)
[2021-05-29] MEDS ORDERED: Potassium Chloride Riders 50 ML ONE ×3 (04:59→10:42)
[2021-05-29] MEDS ORDERED: MVI, Adult with Vitamin K 10 ML, Thiamine 100 MG, Folic Acid 1 MG, Magnesium Sulfate 3 ... IV SCH ×5 (05:00)
[2021-05-29] MEDS ORDERED: Thiamine 200 MG/2 ML MDV ONE (05:33)
[2021-05-29 08:01] VITALS: BP 123/93; PULSE 73
[2021-05-29] MEDS ORDERED: Potassium Chloride 20 MEQ Tab.ER PO ONE ×2 (08:36→10:31)
== END 2021-05-29 12:09 | disposition home or self-care (01) ==
LOC: LB.ED 03:53
DX: R56.9 Unspecified convulsions (principal); F10.239 Alcohol dependence with withdrawal, unspecified; E87.6 Hypokalemia; F17.210 Nicotine dependence, cigarettes, uncomplicated; Y90.0 Blood alcohol level of less than 20 mg/100 ml
CPT/HCPCS: 36415; 80048; 80053; 80307; 82140; 83735; 84100; 85027; 96365; 96366; 96367; 96375; 99284; A0425; A0429; A9270; J1953; J2060; J3411; J3475; J3480; J7030; J3490

== ENCOUNTER 2021-11-16 18:56 | Emergency (ER) | payer MEDICAID ==
[2021-11-16] MEDS ORDERED: Sodium Chloride 0.9% 1,000 ML IV ONE (19:52)
[2021-11-16] MEDS: LORazepam 2 MG/ML SDV IVPUSH ONE (20:08)
[2021-11-16] MEDS: Albuterol/Ipratropium 3.0-0.5 MG/3 ML Neb Soln NEB ONE (20:11)
[2021-11-16] MEDS: LORazepam 2 MG/ML SDV ONE (20:11)
[2021-11-16] MEDS: MVI, Adult with Vitamin K 10 ML, Thiamine 100 MG, Folic Acid 1 MG, Magnesium Sulfate 3 ... IV SCH ×5 (20:34)
[2021-11-16] MEDS: chlordiazePOXIDE 25 MG Cap ONE (22:04)
[2021-11-16] MEDS: chlordiazePOXIDE 25 MG Cap PO ONE (22:04)
--- NOTE | 2021-11-17 08:20 | CT ---
Date of Service: 11/16/21 Clinical Data: Short-term memory loss, neurologic symptoms UNENHANCED BRAIN CT: Multislice axial acquisition was performed. Comparison is made to a prior unenhanced brain CT dated 03/05/20. No masses or mass effect. No intracranial hemorrhage. No evidence of acute or subacute infarct. No osseous abnormalities. IMPRESSION: No acute intracranial abnormalities. [id number] [facility]
--- NOTE | 2021-11-17 09:27 | EDM.PDOC ---
ED HPI GENERAL MEDICAL PROBLEM - General Chief Complaint: General Stated Complaint: neuro Time Seen by Provider: 11/16/21 19:00 Source of Information: Reports: Patient History Limitations: Reports: No Limitations - History of Present Illness INITIAL COMMENTS - FREE TEXT/NARRATIVE: 46-year-old male who comes to the ER with his complaining of issues with short-term memory, feeling cold. Patient states he has been feeling cold all the time for approximately 2 weeks. Positive for intermittent shortness of breath, blurred vision, dark yellow urine, issues with balance, tremors, decrease in alcohol intake, recent methamphetamine usage, long history of EtOH abuse, multiple episodes of withdrawal with seizure. Patient negative for: Chest pain, syncope/near syncope, constipation/diarrhea, nausea vomiting, difficulty swallowing, red swollen joints, rash, or headache. - Related Data Allergies Allergy/AdvReac Type Severity Reaction Status Date / Time No Known Allergies Allergy Verified 11/16/21 19:21 Home Meds: Home Meds chlordiazePOXIDE [Librium] See Taper PO DAILY #20 cap 11/16/21 [Rx] Past Medical History - Past Health History Medical/Surgical History: Denies Medical/Surgical History Psychiatric History: Reports: Addiction, Depression Dermatologic History: Reports: Eczema, Psoriasis - Past Surgical History Musculoskeletal Surgical History: Reports: Other (See Below) Other Musculoskeletal Surgeries/Procedures:: wrist surgery Social & Family History - Family History Family Medical History: No Pertinent Family History - Caffeine Use Caffeine Use: Reports: Coffee - Recreational Drug Use Recreational Drug Use: Yes Recreational Drug Type: Reports: Methamphetamine ED ROS GENERAL - Review of Systems Review Of Systems: Comprehensive ROS is negative, except as noted in HPI. ED EXAM, GENERAL - Physical Exam Exam: See Below Free Text/Narrative:: ABC intact. No apparent distress. No obvious trauma. Speaking in full sentences. Alert and oriented x3, GCS 456. Exam Limited By: No Limitations General Appearance: Alert, WD/WN, No Apparent Distress Eye Exam: Bilateral Eye: EOMI, PERRL Ears: Normal External Exam, Normal Canal, Hearing Grossly Normal, Normal TMs Ear Exam: Bilateral Ear: Auricle Normal, Canal Normal, TM normal Nose: Normal Inspection, Normal Mucosa, No Blood Throat/Mouth: Normal Inspection, Normal Lips, Normal Teeth (Poor dentition), Normal Gums, Normal Oropharynx, Normal Voice, No Airway Compromise Head: Atraumatic, Normocephalic Neck: Normal Inspection, Supple, Non-Tender, Full Range of Motion. No: Lymphadenopathy (R), Lymphadenopathy (L), Tender Lateral, Tender Midline Respiratory/Chest: No Respiratory Distress, No Accessory Muscle Use, Chest Non- Tender, Wheezing (Minor wheezing throughout most likely secondary to smoking). No: Respiratory Distress Cardiovascular: Normal Peripheral Pulses, Regular Rate, Rhythm, No Edema, No Gallop, No JVD, No Murmur, No Rub Peripheral Pulses: 2+: Radial (L), Radial (R) GI/Abdominal: Normal Bowel Sounds, Soft, Non-Tender, No Distention, No Abnormal Bruit, No Mass, Hepatomegaly (Approximately inch and 1/2 to 2 inches below the rib margin smooth) (Male) Exam: Deferred Rectal (Males) Exam: Deferred Back Exam: Normal Inspection. No: CVA Tenderness (R), CVA Tenderness (L), Muscle Spasm, Paraspinal Tenderness, Vertebral Tenderness Extremities: Normal Inspection, Normal Range of Motion, Non-Tender, Normal Capillary Refill, No Pedal Edema Neurological: Alert, Oriented, CN II-XII Intact, Memory Loss Recent Events, Other (Patient struggled with and shook vigorously while conducting the Romberg test, patient unable to recall 3 words on recent recall, unable to put presidents in order last 3 answered all other questions correctly no other deficits on neuro exam, all cleared after treatment administration) Psychiatric: Normal Affect, Normal Mood Skin Exam: Warm, Dry, Intact, Normal Color, No Rash Lymphatic: No Adenopathy #1 Interpretation EKG Date: 11/16/21 (Sinus tach, without ectopy, no ST elevation or depression, this is not a STEMI) Course - Vital Signs Last Recorded V/S: Last Vital Signs Temp 98.5 F 11/16/21 22:16 Pulse 110 H 11/16/21 22:16 Resp 20 11/16/21 22:16 BP 109/53 L 11/16/21 22:16 Pulse Ox 98 11/16/21 22:16 - Orders/Labs/Meds Orders: Active Orders 24 hr Category Date Time Status EKG 12 Lead [EK] Routine Ther 11/16/21 19:26 Ordered Labs: Laboratory Tests 11/16/21 11/16/21 11/16/21 Range/Units 19:25 19:25 19:26 WBC 9.4 (4.0-11.0) K/uL RBC 3.51 L (4.50-6.50) M/uL Hgb 12.8 L (13.0-18.0) g/dL Hct 35.9 L (40.0-54.0) % MCV 102 H (76-96) fL MCH 36.5 H (27.0-32.0) pg MCHC 35.7 H (31.0-35.0) g/dL RDW 13.3 (11.0-16.0) % Plt Count 104 L D (150-400) K/uL MPV 11.1 H (6.0-10.0) fL Neut % (Auto) 79.3 H (45.0-70.0) % Lymph % (Auto) 14.5 L (20.0-40.0) % [place] % (Auto) 5.5 (3.0-10.0) % Eos % (Auto) 0.4 L (1.0-5.0) % Baso % (Auto) 0.3 (0.0-0.5) % Neut # (Auto) 7.43 (2.00-7.50) K/uL Lymph # (Auto) 1.36 L (1.50-4.00) K/uL [place] # (Auto) 0.52 (0.20-0.80) K/uL Eos # (Auto) 0.04 (0.04-0.40) K/uL Baso # (Auto) 0.03 (0.02-0.10) K/uL Sodium 127 L (136-145) mmol/L Potassium 3.1 L (3.5-5.1) mmol/L Chloride 90 L (98-107) mmol/L Carbon Dioxide 24.3 (21.0-32.0) mmol/L Anion Gap 15.8 H (5.0-15.0) mmol/L BUN 5 L D (8-26) mg/dL Creatinine 0.83 D (0.70-1.30) mg/dL Est Cr Clr Drug Dosing TNP Estimated GFR (MDRD) > 60 (>60) MLS/MIN BUN/Creatinine Ratio 6.0 (6-25) Glucose 88 (74-100) mg/dL Calcium 8.7 (8.5-10.1) mg/dL Total Bilirubin 1.8 H D (0.0-1.0) mg/dL AST 199 H (15-37) U/L ALT 160 H (12-78) U/L Alkaline Phosphatase 176 H (46-116) U/L Troponin I < 0.017 (0.000-0.060) ng/mL Total Protein 7.9 (6.4-8.2) g/dL Albumin 3.7 (3.4-5.0) g/dL Globulin 4.2 (2.2-4.2) g/dL Albumin/Globulin Ratio 0.9 (0.8-2.0) TSH, Ultra Sensitive (0.358-3.740) uIU/mL Urine Opiates Screen (NEGATIVE) Ur Oxycodone Screen (NEGATIVE) Urine Methadone Screen (NEGATIVE) Ur Barbiturates Screen (NEGATIVE) Ur Tricyclics Screen (NEGATIVE) Ur Phencyclidine Scrn (NEGATIVE) Ur Amphetamine Screen (NEGATIVE) U Methamphetamines Scrn (NEGATIVE) Urine MDMA Screen (NEGATIVE) U Benzodiazepines Scrn (NEGATIVE) U Cocaine Metab Screen (NEGATIVE) U Marijuana (THC) Screen (NEGATIVE) Ethyl Alcohol < 3.0 (<3.0) mg/dL SARS-CoV-2 RNA (EVELIO) (NEGATIVE) 11/16/21 11/16/21 11/16/21 Range/Units 19:38 19:50 20:05 WBC (4.0-11.0) K/uL RBC (4.50-6.50) M/uL Hgb (13.0-18.0) g/dL Hct (40.0-54.0) % MCV (76-96) fL MCH (27.0-32.0) pg MCHC (31.0-35.0) g/dL RDW (11.0-16.0) % Plt Count (150-400) K/uL MPV (6.0-10.0) fL Neut % (Auto) (45.0-70.0) % Lymph % (Auto) (20.0-40.0) % [place] % (Auto) (3.0-10.0) % Eos % (Auto) (1.0-5.0) % Baso % (Auto) (0.0-0.5) % Neut # (Auto) (2.00-7.50) K/uL Lymph # (Auto) (1.50-4.00) K/uL [place] # (Auto) (0.20-0.80) K/uL Eos # (Auto) (0.04-0.40) K/uL Baso # (Auto) (0.02-0.10) K/uL Sodium (136-145) mmol/L Potassium (3.5-5.1) mmol/L Chloride (98-107) mmol/L Carbon Dioxide (21.0-32.0) mmol/L Anion Gap (5.0-15.0) mmol/L BUN (8-26) mg/dL Creatinine (0.70-1.30) mg/dL Est Cr Clr Drug Dosing Estimated GFR (MDRD) (>60) MLS/MIN BUN/Creatinine Ratio (6-25) Glucose (74-100) mg/dL Calcium (8.5-10.1) mg/dL Total Bilirubin (0.0-1.0) mg/dL AST (15-37) U/L ALT (12-78) U/L Alkaline Phosphatase (46-116) U/L Troponin I (0.000-0.060) ng/mL Total Protein (6.4-8.2) g/dL Albumin (3.4-5.0) g/dL Globulin (2.2-4.2) g/dL Albumin/Globulin Ratio (0.8-2.0) TSH, Ultra Sensitive 4.437 H (0.358-3.740) uIU/mL Urine Opiates Screen Negative (NEGATIVE) Ur Oxycodone Screen Negative (NEGATIVE) Urine Methadone Screen Negative (NEGATIVE) Ur Barbiturates Screen Negative (NEGATIVE) Ur Tricyclics Screen Negative (NEGATIVE) Ur Phencyclidine Scrn Negative (NEGATIVE) Ur Amphetamine Screen Positive H (NEGATIVE) U Methamphetamines Scrn Positive H (NEGATIVE) Urine MDMA Screen Negative (NEGATIVE) U Benzodiazepines Scrn Negative (NEGATIVE) U Cocaine Metab Screen Negative (NEGATIVE) U Marijuana (THC) Screen Negative (NEGATIVE) Ethyl Alcohol (<3.0) mg/dL SARS-CoV-2 RNA (EVELIO) Negative (NEGATIVE) Meds: Medications Discontinued Medications Generic Name Dose Route Start Last Admin Trade Name Freq PRN Reason Stop Dose Admin Albuterol/Ipratropium 3 ml 11/16/21 19:51 11/16/21 20:11 Albuterol/Ipratropium 3.0-0.5 Mg/3 Ml Neb Soln NEB 11/16/21 19:52 3 ml ONETIME ONE Administration Chlordiazepoxide HCl Confirm 11/16/21 21:59 11/16/21 22:04 Chlordiazepoxide 25 Mg Cap Administered 11/16/21 22:00 Not Given Dose 100 mg .ROUTE .STK-MED ONE Chlordiazepoxide HCl 100 mg 11/16/21 22:02 11/16/21 22:04 Chlordiazepoxide 25 Mg Cap PO 11/16/21 22:03 100 mg ONETIME ONE Administration Sodium Chloride 1,000 mls @ 999 mls/hr 11/16/21 19:52 Normal Saline IV 11/16/21 20:52 .BOLUS ONE Multivitamins/Minerals 10 ml/ 1,017.2 mls @ 500 mls/hr 11/16/21 20:00 11/16/21 20:34 Thiamine HCl 100 mg/ Folic IV 500 mls/hr Acid 1 mg/ Magnesium Sulfate 3 ASDIRECTED GISSELLE Administration gm/ Sodium Chloride Lorazepam 1 mg 11/16/21 19:58 11/16/21 20:08 Lorazepam 2 Mg/Ml Sdv IVPUSH 11/16/21 19:59 1 mg ONETIME ONE Administration Lorazepam Confirm 11/16/21 20:17 11/16/21 20:11 Lorazepam 2 Mg/Ml Sdv Administered 11/16/21 20:18 Not Given Dose 2 mg .ROUTE .STK-MED ONE - Radiology Interpretation CT Results Date: 11/16/21 (No acute intracranial findings) Departure - Departure Time of Disposition: 23:00 Disposition: Home, Self-Care 01 Condition: Good Clinical Impression: Alcohol withdrawal Qualifiers: Complication of substance-induced condition: uncomplicated Qualified Code(s): F10.230 - Alcohol dependence with withdrawal, uncomplicated - Discharge Information *PRESCRIPTION DRUG MONITORING PROGRAM REVIEWED*: No *COPY OF PRESCRIPTION DRUG MONITORING REPORT IN PATIENT LEXUS: No Prescriptions: chlordiazePOXIDE [Librium] See Taper PO DAILY #20 cap Instructions: Alcohol Use Disorder Referrals: PCP,None [Primary Care Provider] - Forms: ED Department Discharge Care Plan Goals: take Librium as directed. Sepsis Event Note (ED) - Evaluation Sepsis Screening Result: No Definite Risk - My Orders Last 24 Hours: My Active Orders 11/16/21 19:26 EKG 12 Lead [EK] Routine - Assessment/Plan Last 24 Hours: My Active Orders 11/16/21 19:26 EKG 12 Lead [EK] Routine Assessment:: 1. Alcohol withdrawal * Short-term memory issue * Difficulty with balance * Elevated CIWA * Irritability 2. Methamphetamine Plan: ABC, history, exam, labs, DuoNeb, urine drug tox screen, COVID-19 PCR Alcohol withdrawal- * Ativan, Librium * Ambulatory prescription for Librium taper * Discussed discontinuing EtOH abuse, methamphetamine use * Multiple CIWA evaluations -Patient and/or physician relations representative understood and agreed to treatment plan. -All questions were answered to the patient's satisfaction. -Patient is discharged in stable condition. Patient to return to the ED if symptoms increase/return, respiratory depression, seizure activity, or any other serious or concerning symptoms. Follow-up with primary care provider within 2 weeks.
== END 2021-11-16 22:44 | disposition home or self-care (01) ==
LOC: LB.ED 18:56
DX: F10.230 Alcohol dependence with withdrawal, uncomplicated (principal); R00.0 Tachycardia, unspecified; Y90.0 Blood alcohol level of less than 20 mg/100 ml; Z20.822 Contact with and (suspected) exposure to COVID-19
CPT/HCPCS: 36415; 70450; 80053; 80307; 84443; 84484; 85025; 87635; 93005; 96365; 96366; 96375; 99285; A9270; J2060; J3411; J3475; J7030; J3490; J7620-GY; U0002

== ENCOUNTER 2022-11-18 10:55 | Emergency (ER) | payer MEDICAID ==
[2022-11-18] MEDS ORDERED: MVI, Adult with Vitamin K 10 ML, Thiamine 100 MG, Folic Acid 1 MG, Magnesium Sulfate 3 ... IV SCH ×10 (11:45→19:15)
[2022-11-18] MEDS: LORazepam 2 MG/ML SDV IVPUSH ONE ×2 (11:55→13:45)
[2022-11-18] MEDS: levETIRAcetam 500 MG in Sodium Chloride 0.9% 100 ML IV ONE (11:59)
[2022-11-18] MEDS: levETIRAcetam 500 MG/5 ML SDV ONE (12:09)
[2022-11-18] MEDS: LORazepam 2 MG/ML SDV ONE ×2 (12:09→13:49)
[2022-11-18] MEDS: Potassium Chloride Riders 10 MEQ in Premix Bag 1 BAG IV ONE (12:43)
[2022-11-18] MEDS: NS with KCl 40mEq 1,000 ML IV SCH (13:13)
[2022-11-18] MEDS: Haloperidol Lactate 5 MG/ML SDV IVPUSH ONE ×2 (13:53→14:31)
[2022-11-18] MEDS: Haloperidol Lactate 5 MG/ML SDV ONE ×2 (13:59→14:39)
[2022-11-18] MEDS: diazePAM 5 MG/ML MDV ONE (14:14)
[2022-11-18] MEDS: Potassium Chloride Riders 50 ML ONE (14:15)
[2022-11-18] MEDS: diazePAM 5 MG/ML MDV IV ONE (14:40)
== END 2022-11-18 16:27 ==
LOC: LB.ED 10:55
DX: F10.20 Alcohol dependence, uncomplicated (principal); F17.210 Nicotine dependence, cigarettes, uncomplicated; E87.6 Hypokalemia; E87.1 Hypo-osmolality and hyponatremia; Y90.6 Blood alcohol level of 120-199 mg/100 ml; Z20.822 Contact with and (suspected) exposure to COVID-19
CPT/HCPCS: 36415; 70450; 71045; 71250; 74176; 80048; 80053; 80307; 81001; 82140; 83605; 83690; 83735; 85025; 93005; 93010; 96365; 96366; 96367; 96375; 96376; 99285; 99285-25; J1630; J1953; J2060; J3360; J3480; J3490; U0002